=== PATIENT | male | born 1970 | race Caucasian/White ===

== ENCOUNTER 2025-04-24 09:53 | Outpatient (CLI) | payer MEDICARE ==
[2025-04-24] MEDS ORDERED: Iopamidol 300 61% 100 ML VIAL FS ONE (10:39)
[2025-04-24 12:50] LABS: Estimated GFR - POC 71.0
== END 2025-04-24 09:54 | disposition home or self-care (01) ==
LOC: CSHCT 09:53
PROVIDERS: ATTEND Urology
DX: N28.1 Cyst of kidney, acquired (principal); N20.0 Calculus of kidney; Z90.5 Acquired absence of kidney
CPT/HCPCS: 36415; 74170; 82565; Q9967